=== PATIENT | female | born 1995 | race American Indian/Alaskan Native ===

== ENCOUNTER 2017-03-28 10:13 | Outpatient (CLI) | payer OTHER ==
[2017-03-28] MEDS ORDERED: LACTATED RINGERS 500 ML IV ONE (11:00)
[2017-03-28] MEDS ORDERED: FIORICET PO PRN (11:46)
[2017-03-28 12:03] VITALS: BP 126/67
== END 2017-03-28 12:10 | disposition home or self-care (01) ==
LOC: TRG 10:13
PROVIDERS: ATTEND Obstetrics & Gynecology
DX: O47.02 False labor before 37 completed weeks of gestation, second trimester (principal); Z3A.22 22 weeks gestation of pregnancy
CPT/HCPCS: 59025

== ENCOUNTER 2017-08-01 03:49 | Inpatient (IN) | payer OTHER ==
[2017-08-01] MEDS ORDERED: LACTATED RINGERS 1,000 ML IV ONE (04:12)
[2017-08-01] MEDS ORDERED: ZOFRAN IV ONE (04:17)
[2017-08-01] MEDS ORDERED: SUBLIMAZE IV PRN (05:35)
[2017-08-01 06:55] LABS: Bacteria,Urine 1+ /HPF (Negative); Bilirubin,Urine NEG (Negative); Blood,Urine NEG (Negative); Color,Urine Yellow (Yellow); Mucus,Urine FEW /HPF; Urobilinogen,Urine < 2.0 mg/dL (<2.0)
--- NOTE | 2017-08-01 07:20 | History and Physical Report ---
History of Present Illness Date of examination: 08/01/17 Chief complaint: painful uterine contractions History of present illness: EDC Confirmation: 07/31/2017 Past History : 2 Term Births: 0 Premature Births: 0 Living Children: 0 Para: 0 Mult. Births: 0 Prev : 0 Prev. attempt? 0 Aborta: 1 Elect. Ab: 1 Spont. 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 of genital herpes: no Genetic History Congenital Heart Defect: Mom: no Dad: no Ivon Disease: Mom: no Dad: no Thalassemia Mom: no Dad: no Neural Tube Defect Mom: no Dad: no Down's Syndrome Mom: no Dad: no Devon-Sachs Mom: no Dad: no Sickle Cell Disease/Trait Mom: no Dad: no Hemophilia Mom: no Dad: no Muscular Dystrophy Mom: no Dad: no Cystic Fibrosis Mom: no Dad: no Hollis Chorea Mom: no Dad: no Mental Retardation Mom: no Dad: no Fragile X Mom: no Dad: no Other Genetic/Chromosomal Disorder Mom: no Dad: no Child w/other defect Mom: no Dad: no Enviromental Exposures Xray Exposure: no Medication, drug, or alcohol use since LMP: no Chemical/Other Exposure: no Active Medications (reviewed today): None Current Allergies (reviewed today): No known allergies Past History Past Medical History: other (see HPI) Past Surgical History: other (see HPI) CERTIFIED MIDWIFE History: other (see HPI) Family/Genetic History: other (see HPI) Social history: other (see HPI) - Obstetrical History Expected Date of Delivery: 07/31/17 Actual Gestation: 40 Week(s) 1 Day(s) : 2 Para: 0 Hx # Term Pregnancies: 0 Number of Pregnancies: 0 Spontaneous Abortions: 0 Induced : 1 Number of Living Children: 0 Medications and Allergies Allergies Allergy/AdvReac Type Severity Reaction Status Date / Time No Known Allergies Allergy Unverified 03/28/17 10:41 Home Medications Medication Instructions Recorded Confirmed Last Taken Type No Known Home Medications [No 03/28/17 03/28/17 Unknown History Reported Home Medications] Active Meds: Active Medications Ephedrine Sulfate (Ephedrine Sulfate) 10 mg IV Q2M PRN PRN Reason: Hypotension Fentanyl (Sublimaze) 100 mcg IV ONCE PRN PRN Reason: Pain , Severe (7-10) Stop: 08/01/17 23:59 Last Admin: 08/01/17 05:49 Dose: 100 mcg Ampicillin Sodium (Ampicillin/Ns 1 Gm/50 Ml) 1 gm in 50 mls @ 100 mls/hr IV Q4HR NICKO; Protocol Ampicillin Sodium (Polycillin/Ns 2 Gm/100 Ml) 2 gm in 100 mls @ 100 mls/hr IV ONCE ONE; Protocol Stop: 08/01/17 08:09 Lactated Ringer's (Lactated Ringers) 1,000 mls @ 125 mls/hr IV DIRECT NICKO Oxytocin/Sodium Chloride (Pitocin/Ns 20 Unit/1000ml Drip) 20 units in 1,000 mls @ 125 mls/hr IV DIRECT NICKO Oxytocin/Sodium Chloride (Pitocin/Ns 30 Unit/500ml) 30 units in 500 mls @ 1 mls /hr IV TITR NICKO; Protocol Lidocaine (Xylocaine 2%) 20 ml INFILTRATI ONCE ONE Stop: 08/01/17 07:11 Mineral Oil (Mineral Oil) 30 ml PO QHS PRN PRN Reason: Constipation Terbutaline Sulfate (Brethine) 0.25 mg SUB-Q ONCE PRN PRN Reason: Hyperstimulation/Hypertonicity Terbutaline Sulfate (Brethine) 0.25 mg IVP ONCE PRN PRN Reason: Hyperstimulation/Hypertonicity Review of Systems All systems: negative - Vital Signs Vital signs: Vital Signs Temp Pulse Resp BP Pulse Ox 98.4 F 85 18 128/73 96 08/01/17 04:08 08/01/17 04:08 08/01/17 04:08 08/01/17 04:08 08/01/17 04:08 Temp Pulse Resp BP Pulse Ox 98.4 F 83 18 128/73 99 08/01/17 04:08 08/01/17 05:46 08/01/17 04:08 08/01/17 04:11 08/01/17 05:46 - Physical Exam Breasts: Positive: normal Cardiovascular: Regular rate Lungs: Positive: Clear to auscultation, Normal air movement Abdomen: Positive: normal appearance, soft Genitourinary (Female): Positive: normal external genitalia, normal perenium Vulva: both: normal Vagina: Positive: normal moisture Uterus: Positive: normal size, normal contour - Obstetrical FHR: category 1 Uterine Contraction Monitor Mode: External Cervical Dilatation: 3.5 Uterine Contraction Frequency (min): 3-4 Uterine Contraction Duration: 60-80 Uterine Contraction Pattern: Regular Uterine Tone Measurement Phase: Contraction Uterine Contraction Intensity: Mild Results Abnormal lab results 08/01/17 Range/Units 06:20 Urine WBC (Auto) 7.0 H (0.0-6.0) /HPF U Epithel Cells (Auto) 26.0 H (0-13.0) /HPF All other labs normal. Assessment and Plan 21y/o @ 40 weeks presents with reports of labor, changed cervix from 1.5 to 3.5 over the last 2 hours. GBS +. Plan to admit for labor, antibiotics for + GBS, epidural PRN, pitocin augment PRN. - Patient Problems (1) 40 weeks gestation of Current Visit: Yes Status: Acute (2) GBS carrier Current Visit: Yes Status: Acute (3) Active labor at term Current Visit: Yes Status: Acute (4) Rubella non-immune status, antepartum Current Visit: Yes Status: Acute
[2017-08-01 07:23] LABS: Hematocrit 34.2 % (30.3-42.9); Hemoglobin 11.2 gm/dl (10.1-14.3); Mean Corpuscular HGB Conc 33 % (30-34); Mean Corpuscular Hemoglobin 27 pg (28-32); Mean Corpuscular Volume 82 fl (79-97); Platelet Count 234 K/mm3 (140-440); Red Blood Count 4.15 M/mm3 (3.65-5.03); Red Cell Distribution Width 19.7 % (13.2-15.2)
[2017-08-01] MEDS ORDERED: ePHEDrine SULFATE IV PRN ×2 (07:30→08:00)
[2017-08-01] MEDS ORDERED: XYLOCAINE 2% INFILTRATI NR (07:30)
--- NOTE | 2017-08-01 07:43 | Anesthesia Consultation ---
Anesthesia Consult and Med Hx Date of service: 08/01/17 - Airway Anesthetic Teeth Evaluation: Good ROM Head & Neck: Adequate Mental/Hyoid Distance: Adequate Mallampati Class: Class II Intubation Access Assessment: Probably Good - Pre-Operative Health Status ASA Pre-Surgery Classification: ASA2 Proposed Anesthetic Plan: Epidural, Spinal - Pulmonary Hx Asthma: No - Cardiovascular System Hx Hypertension: No - Central Nervous System Hx Seizures: No Hx Psychiatric Problems: No - Endocrine Hx Renal Disease: No Hx Hypothyroidism: No Hx Hyperthyroidism: No - Hematic Hx Anemia: No Hx Sickle Cell Disease: No - Other Systems Hx Alcohol Use: No
[2017-08-01] MEDS ORDERED: MINERAL OIL PO PRN (08:00)
[2017-08-01] MEDS ORDERED: NARCAN 2 MG/2 ML IV PRN (08:00)
[2017-08-01] MEDS ORDERED: PITOCin/NS 20 UNIT/1000ML DRIP 20 UNITS/1,000 ML BAG IV SCH ×2 (08:00→19:17)
[2017-08-01] MEDS ORDERED: BRETHINE IVP PRN (08:00)
[2017-08-01] MEDS ORDERED: BRETHINE SUB-Q PRN (08:00)
[2017-08-01] MEDS ORDERED: POLYCILLIN/NS 2 GM/100 ML 2 GM/100 ML BAG IV NR (08:00)
[2017-08-01] MEDS ORDERED: LACTATED RINGERS 1,000 ML IV SCH (08:00)
[2017-08-01] MEDS: fentaNYL-BUPIV 2 MCG/ML-0.125% 200 MCG/100 ML BAG EPIDURAL SCH ×2 (08:23→15:50)
[2017-08-01] MEDS ORDERED: AMPICILLIN/NS 1 GM/50 ML 1 GM/50 ML BAG IV SCH ×2 (10:00→11:30)
[2017-08-01] MEDS: PITOCin/NS 30 UNIT/500ML 30 UNITS/500 ML BAG IV SCH ×2 (11:45→12:32)
--- NOTE | 2017-08-01 13:06 | Progress Note ---
Assessment and Plan Pitocin currently infusing @ 2mU. sve 5/100/0 + Bloody show, + mec. IUPC placed without difficulty. Orders to RN to continue titrating pitocin for adequate MVUs. Second dose of ampicillin for + GBS infused @ 1130. Continue current management. - Patient Problems (1) 40 weeks gestation of Current Visit: Yes Status: Acute (2) GBS carrier Current Visit: Yes Status: Acute (3) Active labor at term Current Visit: Yes Status: Acute (4) Rubella non-immune status, antepartum Current Visit: Yes Status: Acute Subjective - Subjective Date of service: 08/01/17 Principal diagnosis: IUP @ 40+1, mec fluid, laboring Interval history: EDC Confirmation: 07/31/2017 Past History : 2 Term Births: 0 Premature Births: 0 Living Children: 0 Para: 0 Mult. Births: 0 Prev : 0 Prev. attempt? 0 Aborta: 1 Elect. Ab: 1 Spont. Ab: 0 Ectopics: 0 # 1 Delivery date: 2013 Delivery type: EAB Past Medical History: Negative Past Medical History Past Surgical History: D&C: (2013) Family History Summary: Mother (biol.) - Has No Family History of Ovarvian Cancer - Entered On: 2016 Mother (biol.) - Has No Family History of Breast Cancer - Entered On: 02/16/2017 Mother (biol.) - Has Family History of Diabetes - Entered On: 02/16/2017 Mother (biol.) - Has Family History of Coronary Heart Disease - Entered On: Social History: Patient is single Past Medical History Surgery (Non-urogynecology physician): D&C: (2013) Abnormal PAP: negative Uterine Anomaly: negative Social Hx: Patient is single Infection History Hx of STD: none HIV Risk Eval: low risk Hepatitis B Risk Eval: low risk Personal hx. of genital herpes: no Genetic History Congenital Heart Defect: Mom: no Dad: no Ivon Disease: Mom: no Dad: no Thalassemia Mom: no Dad: no Neural Tube Defect Mom: no Dad: no Down's Syndrome Mom: no Dad: no Devon-Sachs Mom: no Dad: no Sickle Cell Disease/Trait Mom: no Dad: no Hemophilia Mom: no Dad: no Muscular Dystrophy Mom: no Dad: no Cystic Fibrosis Mom: no Dad: no [place]naha Chorea Mom: no Dad: no Mental Retardation Mom: no Dad: no Fragile X Mom: no Dad: no Other Genetic/Chromosomal Disorder Mom: no Dad: no Child w/other defect Mom: no Dad: no Enviromental Exposures Xray Exposure: no Medication, drug, or alcohol use since LMP: no Chemical/Other Exposure: no Active Medications (reviewed today): None Current Allergies (reviewed today): No known allergies Patient reports: new complaints (vaginal pressure) Objective - Vital Signs Vital Signs: Vital Signs - 12hr 08/01/17 08/01/17 08/01/17 04:08 04:11 04:16 Temperature 98.4 F Pulse Rate 85 85 92 H Respiratory 18 Rate Blood Pressure 128/73 Blood Pressure 128/73 [Left] O2 Sat by Pulse 96 96 98 Oximetry 08/01/17 08/01/17 08/01/17 04:21 04:26 04:31 Temperature Pulse Rate 85 81 85 Respiratory Rate Blood Pressure Blood Pressure [Left] O2 Sat by Pulse 97 98 100 Oximetry 08/01/17 08/01/17 08/01/17 04:34 04:36 04:41 Temperature Pulse Rate 87 87 91 H Respiratory Rate Blood Pressure Blood Pressure [Left] O2 Sat by Pulse 81 L 100 99 Oximetry 08/01/17 08/01/17 08/01/17 04:46 04:51 04:56 Temperature Pulse Rate 91 H 78 87 Respiratory Rate Blood Pressure Blood Pressure [Left] O2 Sat by Pulse 100 100 100 Oximetry 08/01/17 08/01/17 08/01/17 05:01 05:06 05:11 Temperature Pulse Rate 78 93 H 81 Respiratory Rate Blood Pressure Blood Pressure [Left] O2 Sat by Pulse 100 100 100 Oximetry 08/01/17 08/01/17 08/01/17 05:16 05:21 05:26 Temperature Pulse Rate 90 86 94 H Respiratory Rate Blood Pressure Blood Pressure [Left] O2 Sat by Pulse 100 99 99 Oximetry 08/01/17 08/01/17 08/01/17 05:31 05:36 05:41 Temperature Pulse Rate 101 H 81 84 Respiratory Rate Blood Pressure Blood Pressure [Left] O2 Sat by Pulse 99 100 100 Oximetry 08/01/17 08/01/17 08/01/17 05:46 07:47 07:52 Temperature 98.0 F Pulse Rate 83 84 88 Respiratory 18 Rate Blood Pressure 117/71 Blood Pressure [Left] O2 Sat by Pulse 99 98 98 Oximetry 08/01/17 08/01/17 08/01/17 07:57 07:58 07:59 Temperature Pulse Rate 80 82 72 Respiratory Rate Blood Pressure 115/68 Blood Pressure [Left] O2 Sat by Pulse 98 85 Oximetry 08/01/17 08/01/17 08/01/17 08:00 08:02 08:04 Temperature Pulse Rate 90 80 75 Respiratory Rate Blood Pressure 122/69 125/66 121/65 Blood Pressure [Left] O2 Sat by Pulse 98 Oximetry 08/01/17 08/01/17 08/01/17 08:06 08:07 08:08 Temperature Pulse Rate 83 82 86 Respiratory Rate Blood Pressure 114/63 113/64 Blood Pressure [Left] O2 Sat by Pulse 99 Oximetry 08/01/17 08/01/17 08/01/17 08:10 08:12 08:14 Temperature Pulse Rate 86 82 88 Respiratory Rate Blood Pressure 115/64 115/63 117/64 Blood Pressure [Left] O2 Sat by Pulse 100 Oximetry 08/01/17 08/01/17 08/01/17 08:17 08:20 08:22 Temperature Pulse Rate 86 80 92 H Respiratory Rate Blood Pressure 118/66 Blood Pressure [Left] O2 Sat by Pulse 99 99 Oximetry 08/01/17 08/01/17 08/01/17 08:24 08:26 08:27 Temperature Pulse Rate 90 84 88 Respiratory Rate Blood Pressure 120/71 113/66 Blood Pressure [Left] O2 Sat by Pulse 99 Oximetry 08/01/17 08/01/17 08/01/17 08:29 08:32 08:37 Temperature Pulse Rate 81 80 82 Respiratory Rate Blood Pressure 115/65 Blood Pressure [Left] O2 Sat by Pulse 99 99 Oximetry 08/01/17 08/01/17 08/01/17 08:42 08:47 08:52 Temperature Pulse Rate 76 87 82 Respiratory Rate Blood Pressure 117/61 Blood Pressure [Left] O2 Sat by Pulse 99 98 98 Oximetry 08/01/17 08/01/17 08/01/17 08:57 09:01 09:02 Temperature Pulse Rate 86 100 H 105 H Respiratory Rate Blood Pressure 114/66 Blood Pressure [Left] O2 Sat by Pulse 98 99 Oximetry 06/02/0608/01/17 08/01/17 09:07 09:12 09:17 Temperature Pulse Rate 86 98 H 86 Respiratory Rate Blood Pressure 116/60 Blood Pressure [Left] O2 Sat by Pulse 99 100 98 Oximetry 08/01/17 08/01/17 08/01/17 09:22 09:27 09:31 Temperature Pulse Rate 85 78 89 Respiratory Rate Blood Pressure 112/62 Blood Pressure [Left] O2 Sat by Pulse 98 98 Oximetry 08/01/17 08/01/17 08/01/17 09:32 09:37 09:42 Temperature Pulse Rate 87 85 81 Respiratory Rate Blood Pressure Blood Pressure [Left] O2 Sat by Pulse 98 98 97 Oximetry 08/01/17 08/01/17 08/01/17 09:46 09:47 09:52 Temperature Pulse Rate 77 80 75 Respiratory Rate Blood Pressure 107/55 Blood Pressure [Left] O2 Sat by Pulse 98 97 Oximetry 08/01/17 08/01/17 08/01/17 09:57 10:01 10:02 Temperature Pulse Rate 81 85 93 H Respiratory Rate Blood Pressure 108/51 Blood Pressure [Left] O2 Sat by Pulse 97 98 Oximetry 08/01/17 08/01/17 08/01/17 10:07 10:12 10:16 Temperature Pulse Rate 84 85 84 Respiratory Rate Blood Pressure 95/51 Blood Pressure [Left] O2 Sat by Pulse 99 99 Oximetry 08/01/17 08/01/17 08/01/17 10:17 10:21 10:27 Temperature Pulse Rate 80 83 83 Respiratory Rate Blood Pressure Blood Pressure [Left] O2 Sat by Pulse 98 98 99 Oximetry 08/01/17 08/01/17 08/01/17 10:31 10:32 10:37 Temperature Pulse Rate 78 91 H 75 Respiratory Rate Blood Pressure 117/59 Blood Pressure [Left] O2 Sat by Pulse 99 98 Oximetry 08/01/17 08/01/17 08/01/17 10:42 10:46 10:47 Temperature Pulse Rate 78 77 76 Respiratory Rate Blood Pressure 111/61 Blood Pressure [Left] O2 Sat by Pulse 98 97 Oximetry 08/01/17 08/01/17 08/01/17 10:52 10:57 11:01 Temperature Pulse Rate 77 80 74 Respiratory Rate Blood Pressure 109/61 Blood Pressure [Left] O2 Sat by Pulse 98 97 Oximetry 06/02/0608/01/17 08/01/17 11:02 11:07 11:12 Temperature Pulse Rate 80 92 H 75 Respiratory Rate Blood Pressure Blood Pressure [Left] O2 Sat by Pulse 97 97 99 Oximetry 08/01/17 08/01/17 08/01/17 11:16 11:17 11:22 Temperature Pulse Rate 84 80 77 Respiratory Rate Blood Pressure 119/61 Blood Pressure [Left] O2 Sat by Pulse 99 97 Oximetry 08/01/17 08/01/17 08/01/17 11:27 11:32 11:37 Temperature Pulse Rate 86 72 70 Respiratory Rate Blood Pressure 116/64 Blood Pressure [Left] O2 Sat by Pulse 98 98 99 Oximetry 08/01/17 08/01/17 08/01/17 11:41 11:47 11:48 Temperature Pulse Rate 80 96 H 90 Respiratory Rate Blood Pressure 111/63 Blood Pressure [Left] O2 Sat by Pulse 97 97 Oximetry 08/01/17 08/01/17 08/01/17 11:52 11:58 12:01 Temperature Pulse Rate 76 102 H 83 Respiratory Rate Blood Pressure 119/67 Blood Pressure [Left] O2 Sat by Pulse 99 97 Oximetry 08/01/17 08/01/17 08/01/17 12:02 12:08 12:13 Temperature Pulse Rate 88 76 77 Respiratory Rate Blood Pressure Blood Pressure [Left] O2 Sat by Pulse 98 98 99 Oximetry 08/01/17 08/01/17 08/01/17 12:17 12:18 12:23 Temperature Pulse Rate 73 79 78 Respiratory Rate Blood Pressure 110/73 Blood Pressure [Left] O2 Sat by Pulse 99 99 Oximetry 08/01/17 08/01/17 08/01/17 12:28 12:31 12:33 Temperature Pulse Rate 73 82 77 Respiratory Rate Blood Pressure 119/72 Blood Pressure [Left] O2 Sat by Pulse 98 99 Oximetry 08/01/17 08/01/17 08/01/17 12:35 12:38 12:43 Temperature 98.0 F Pulse Rate 76 71 79 Respiratory 18 Rate Blood Pressure Blood Pressure 119/72 [Left] O2 Sat by Pulse 99 99 99 Oximetry 08/01/17 08/01/17 08/01/17 12:46 12:48 12:50 Temperature Pulse Rate 86 76 85 Respiratory Rate Blood Pressure 118/59 Blood Pressure [Left] O2 Sat by Pulse 99 83 L Oximetry 08/01/17 08/01/17 08/01/17 12:53 12:58 13:01 Temperature Pulse Rate 79 86 73 Respiratory Rate Blood Pressure 120/68 Blood Pressure [Left] O2 Sat by Pulse 100 100 Oximetry 08/01/17 13:03 Temperature Pulse Rate 77 Respiratory Rate Blood Pressure Blood Pressure [Left] O2 Sat by Pulse 100 Oximetry - Exam Breasts: normal Cardiovascular: Regular rate Lungs: Clear to auscultation, Normal air movement Abdomen: Present: normal appearance, soft Vulva: both: normal Uterus: Present: normal FHR: category 2 Uterine Contraction Monitor Mode: Internal Cervical Dilatation: 5 Cervical Effacement Percentage: 100 station: 0 Uterine Contraction Frequency (min): 2-3 Uterine Contraction Duration: 50-60 Uterine Contraction Pattern: Regular Uterine Tone Measurement Phase: Contraction Uterine Contraction Intensity: Mild Extremities: normal Deep Tendon Reflex Grade: Normal +2 - Labs Labs: Abnormal Labs 08/01/17 08/01/17 04:20 06:20 MCH 27 L RDW 19.7 H Urine WBC (Auto) 7.0 H U Epithel Cells (Auto) 26.0 H Laboratory Results - last 24 hr 08/01/17 08/01/17 08/01/17 04:20 04:20 04:20 WBC 8.8 RBC 4.15 Hgb 11.2 Hct 34.2 MCV 82 MCH 27 L MCHC 33 RDW 19.7 H Plt Count 234 Urine Color Urine Turbidity Urine pH Ur Specific [place] Urine Protein Urine Glucose (UA) Urine Ketones Urine Blood Urine Nitrite Urine Bilirubin Urine Urobilinogen Ur Leukocyte Esterase Urine WBC (Auto) Urine RBC (Auto) U Epithel Cells (Auto) Urine Bacteria (Auto) Urine Mucus RPR Nonreactive Blood Type O POSITIVE Antibody Screen Negative 08/01/17 06:20 WBC RBC Hgb Hct MCV MCH MCHC RDW Plt Count Urine Color Yellow Urine Turbidity Hazy Urine pH 7.0 Ur Specific [place] 1.014 Urine Protein 30 mg/dl Urine Glucose (UA) Neg Urine Ketones Neg Urine Blood Neg Urine Nitrite Neg Urine Bilirubin Neg Urine Urobilinogen < 2.0 Ur Leukocyte Esterase Lg Urine WBC (Auto) 7.0 H Urine RBC (Auto) 6.0 U Epithel Cells (Auto) 26.0 H Urine Bacteria (Auto) 1+ Urine Mucus Few RPR Blood Type Antibody Screen
[2017-08-01] MEDS ORDERED: PITOCin/NS 30 UNIT/500ML 30 UNITS/500 ML BAG IV SCH (14:00)
--- NOTE | 2017-08-01 16:48 | Procedure Note ---
OB Delivery Note - Delivery Date of Delivery: 08/01/17 ( female) Manager Of Network: CALLIE CHEUNG Estimated blood loss: 300cc - Vaginal Delivery presentation: vertex Delivery position: OA Intrapartum events: meconium Delivery induction: none Delivery augmentation: rupture of membranes, pitocin Delivery monitor: external FHT, internal uterine Route of delivery: Delivery placenta: spontaneous Delivery cord: 3 umbilical vessels Episiotomy: none Delivery laceration: 1st degree Delivery repair: vicryl Anesthesia: epidural Delivery comments: female infant del over intact perineum, PORCELAIN MIXER at bedside d/t meconium fluid. vigourus and crying, placed skin to skin on mother's abdomen. 3 vessel cord clamped and cut, cord blood collected. placenta del intact and complete. vaginal laceration repaired using 3- vicryl CT. EBL 300, apgars 8/9. Mother and infant remain LDR stable. - A at 1 minute: 8 at 5 minutes: 9 Infant Gender: Female
[2017-08-01] MEDS ORDERED: PHENERGAN PO PRN (19:17)
[2017-08-01] MEDS ORDERED: DERMOPLAST TP PRN (19:17)
[2017-08-01] MEDS ORDERED: MILK OF MAGNESIA PO PRN (19:17)
[2017-08-01] MEDS ORDERED: DULCOLAX PR PRN (19:17)
[2017-08-01] MEDS ORDERED: SODIUM CHLORIDE FLUSH SYRINGE 10 ML IV NR (19:17)
[2017-08-01] MEDS ORDERED: TYLENOL PO PRN (19:17)
[2017-08-01] MEDS ORDERED: BENADRYL PO PRN (19:17)
[2017-08-01] MEDS ORDERED: TUCKS PAD TP PRN (19:17)
[2017-08-01] MEDS ORDERED: LANSINOH TP PRN (19:17)
[2017-08-01] MEDS: MOTRIN PO SCH (21:42)
[2017-08-01] MEDS ORDERED: FEOSOL PO SCH (22:00)
[2017-08-01] MEDS ORDERED: COLACE PO SCH (22:00)
[2017-08-02] MEDS: MOTRIN PO SCH ×2 (05:57→18:10)
[2017-08-02] MEDS ORDERED: M-M-R II VACCINE SUB-Q ONE (06:00)
[2017-08-02] MEDS ORDERED: BOOSTRIX IM ONE (06:00)
--- NOTE | 2017-08-02 06:30 | Discharge Summary ---
Providers - Providers Date of Admission: 08/01/17 03:50 Date of discharge: 08/02/17 (pt agrees with d/c) Attending physician: KARLEE RICK 08/01/17 19:17 Consult to Recreational Assistant [CONS] Routine Reason For Exam: assistance with , SNS Primary care physician: KARLEE RICK Hospitalization Reason for admission: active labor Delivery: Episiotomy: none Laceration: 1st degree Incision: normal Other procedures: none complications: none Discharge diagnosis: IUP at term delivered [place] baby: female Hospital course: uncomplicated vaginal delivery Pt w/o complaint Req to see prior to d/c VSS FF below umb Lochia scant Perineum slight swelling intact. H&H pending Pt is w/o s/sx of anemia Doing well s/p vag delivery P: d/c today with instructions RTO 4 weeks PP care. Condition at discharge: Good Disposition: DC-01 TO HOME OR SELFCARE - Discharge Diagnoses (1) (normal spontaneous vaginal delivery) Status: Acute Comment: RTO 4 weeks PP care Plan - Provider Discharge Summary Activity: routine, no sex for 6 weeks, no heavy lifting 4 weeks, no strenuous exercise Diet: routine Instructions: routine Additional instructions: [] Smoking cessation referral if applicable(refer to patient education folder for contact #) [] Refer to [facility] Booklet Call your doctor immediately for: * Fever > 100.5 * Heavy vaginal bleeding ( >1 pad per hour) * Severe persistent headache * Shortness of breath * Reddened, hot, painful area to leg or breast * Drainage or odor from incision. * Keep incision clean and dry at all times and follow doctor's instructions regarding bathing/showering - Follow up plan Follow up: KARLEE RICK MD [Primary Care Provider] - 08/31/17 (Congratulations! Please call [phone] to schedule your visit in 4 weeks. Motrin/Ibuprofen may be used for any cramping/abdominal pain. Follow label directions. Tylenol for any headache. Call with any concerns. )
[2017-08-02 07:48] LABS: Hematocrit 29.7 % (30.3-42.9); Hemoglobin 9.6 gm/dl (10.1-14.3)
[2017-08-02] MEDS ORDERED: PRENATAL VITAMIN PO SCH (10:00)
[2017-08-02 20:08] VITALS: BP 103/64
== END 2017-08-02 21:00 | disposition home or self-care (01) | DRG 775 ==
LOC: TRG 03:49 → LD 03:50 → TRG 04:01 → OB 19:36
PROVIDERS: ADMIT Obstetrics & Gynecology; ATTEND Obstetrics & Gynecology
PROC: 10E0XZZ Delivery of Products of Conception, External Approach (ICD-10-PCS; principal; 2017-08-01)
PROC: 10H07YZ Insertion of Other Device into Products of Conception, Via Natural or Artificial Opening (ICD-10-PCS; 2017-08-01)
PROC: 0HQ9XZZ Repair Perineum Skin, External Approach (ICD-10-PCS; 2017-08-01)
PROC: 3E0R3BZ Introduction of Anesthetic Agent into Spinal Canal, Percutaneous Approach (ICD-10-PCS; 2017-08-01)
PROC: 00HU33Z Insertion of Infusion Device into Spinal Canal, Percutaneous Approach (ICD-10-PCS; 2017-08-01)
PROC: 3E0234Z Introduction of Serum, Toxoid and Vaccine into Muscle, Percutaneous Approach (ICD-10-PCS; 2017-08-02)
DX: O99.824 Streptococcus B carrier state complicating childbirth (principal); O77.0 Labor and delivery complicated by meconium in amniotic fluid; Z82.49 Family history of ischemic heart disease and other diseases of the circulatory system; Z37.0 Single live birth; O70.0 First degree perineal laceration during delivery; Z83.3 Family history of diabetes mellitus; Z3A.40 40 weeks gestation of pregnancy; Z23 Encounter for immunization
CPT/HCPCS: 36415; 81001; 85014; 85018; 85027; 86592; 86850; 86900; 86901; 88307; 99211; G0463; J0290; J2405; J2590; J3010; J7120